=== PATIENT | male | born 1975 | race Caucasian/White ===

== ENCOUNTER 2017-07-01 21:53 | Emergency (ER) | payer BC, OTHER ==
[2017-07-01 22:29] VITALS: O2SAT 98
--- NOTE | 2017-07-01 23:09 | C.PDOC ---
History Of Present Illness 41 year old male, with a past medical history of HTN and depression, who presents to the emergency department for evaluation of rash developed to right lower extremity for the past x3-4 days. Patient reports rash is associated with burning sensation to the right foot. He states earlier today noted similar rash to the left lower leg. He denies fever, chills, headache, dizziness, vertigo, visual changes, focal deficits, neck pain, chest pain, SOB, dyspnea, palpitation , nausea, vomit, diarrhea, abdominal pain, back pain, UTI sx, denies trauma or injut, recent travel , denies change in medication. Ambulate to Ed for evaluation, not in nay apparent distress. PMD: None provided. Time Seen by Provider: 07/01/17 22:32 Chief Complaint (Nursing): Abnormal Skin Integrity History Per: Patient History/Exam Limitations: no limitations Onset/Duration Of Symptoms: Days (x3-4) Current Symptoms Are (Timing): Still Present Location Of Injury: Right: Leg, Left: Leg Past Medical History Reviewed: Historical Data, Nursing Documentation, Vital Signs Vital Signs: Last Vital Signs Temp 98 F 07/02/17 02:38 Pulse 82 07/02/17 02:38 Resp 20 07/02/17 02:38 BP 120/80 07/02/17 02:38 Pulse Ox 98 07/02/17 02:38 - Medical History PMH: Asthma, Depression, HTN Surgical History: No Surg Hx - [facility] Procedures TETANUS TOXOID ADMINIST (12/17/13) Family History: States: Unknown Family Hx - Social History Hx Tobacco Use: Yes Hx Alcohol Use: No Hx Substance Use: Yes - Immunization History Hx Tetanus Toxoid Vaccination: No Hx Influenza Vaccination: No Hx Pneumococcal Vaccination: No Review Of Systems Except As Marked, All Systems Reviewed And Found Negative. Constitutional: Negative for: Fever, Chills ENT: Negative for: Nose Congestion Cardiovascular: Negative for: Chest Pain Respiratory: Negative for: Cough, Shortness of Breath Gastrointestinal: Negative for: Nausea, Vomiting, Abdominal Pain, Diarrhea Skin: Positive for: Rash (b/l lower extremities) Neurological: Negative for: Headache, Dizziness Physical Exam - Physical Exam Appears: Well, Non-toxic, No Acute Distress Skin: Normal Color, Warm, Dry, Rash (petechiae to b/l shins area) Head: Normacephalic Eye(s): bilateral: PERRL, EOMI Ear(s): Bilateral: Normal Nose: No Flaring, No Discharge Oral Mucosa: Moist, No Drooling Tongue: Normal Appearing, No Lesions, No Bleeding Lips: No Lesions Gingiva: No Swelling, No Tender, No Bleeding Throat: No Erythema, No Drooling Neck: Normal ROM, Trachea Midline, Supple Cardiovascular: Rhythm Regular, No Murmur, No JVD Respiratory: No Decreased Breath Sounds, No Accessory Muscle Use, No Stridor, No Wheezing Gastrointestinal/Abdominal: Soft, No Tenderness, No Distention, No Guarding Back: No CVA Tenderness, No Vertebral Tenderness Extremity: Normal ROM (upper and lower extremities), No Tenderness, No Pedal Edema, No Calf Tenderness, No Deformity, No Swelling Neurological/Psych: Oriented x3, Normal Speech, Normal Motor, Normal Sensation, Normal Reflexes Gait: Steady ED Course And Treatment - Laboratory Results Result Diagrams: 07/02/17 00:27 07/01/17 23:35 Lab Interpretation: No Acute Changes O2 Sat by Pulse Oximetry: 98 (RA) Pulse Ox Interpretation: Normal Progress Note: Initial Plan: CMP, CPK, Drug screen, urine, CBC w/ differential, Sed Rate, PTT, PT, urinalysis. Pt was OBS in ED for 4 hours and remained stable. On re-evaluation, pt is afebrile, hemodynamicaly stable. Non-toxic. Tolerate po well in ED. PulsEOx 98% RA. ENT: no acute findings. Neck: Supple , (-) meningeal sign, (-) JVD, (-) carotid bruits B/L. Lungs: CTA B/L, BS equal B/L. CVS: (+)S1S2, reg. Abd: benign, (-) guaridng, (-) rebound. Back: ( -) CVA tenderness. Neurologicaly intact. case discussed with and patient was evaluated, blood work review and results discussed with patient. Pt has clinical findings c/w vasculitis, mild dehydration. As per , pt i sstable for discharge now with outpt f/u. Pt advised, and ref. to F/u with PMD in 1-2 days for re-eval. return to ED immediately if any worsening or new changes. Pt understand and agrees with discharges. On discharge, pt requested Rx: Lisinopril, ran out. Disposition Counseled Patient/Family Regarding: Studies Performed, Diagnosis, Need For Followup, Rx Given - Disposition Referrals: [facility] [Outside] Disposition: HOME/ ROUTINE Disposition Time: 02:00 Condition: STABLE Additional Instructions: Follow up with PMD in 1-2 days for re-evaluation. Consider review medication as possible cause of vasculaitis Encourage fluids return to ED if any worsening or new changes. Prescriptions: Lisinopril [Prinivil] 10 mg PO DAILY #20 tab Instructions: High Blood Pressure in Adults, Vasculitis (DC) Forms: [employer] (Sudanese) - Clinical Impression Clinical Impression: Vasculitis - Scribe Statement The provider has reviewed the documentation as recorded by the Scribe Guy Vora
[2017-07-01 23:42] LABS: URINE BACTERIA RARE (<OCC); URINE BILIRUBIN NEGATIVE (NEGATIVE); URINE CLARITY Clear (Clear); URINE COLOR Yellow (YELLOW); URINE GLUCOSE (UA) NORMAL (Normal); URINE LEUKOCYTE ESTERASE NEG Leu/uL (Negative); URINE PROTEIN NEGATIVE (NEGATIVE); URINE UROBILINOGEN NORMAL mg/dL (0.2-1.0)
[2017-07-01 23:43] LABS: URINE BLOOD NEGATIVE (NEGATIVE)
[2017-07-01 23:50] LABS: GFR AFRICAN-AMERICAN > 60; GFR NON-AFRICAN AMERICAN > 60
[2017-07-01 23:54] LABS: ALB/GLOB RATIO 0.9 (1.0-2.1); ALBUMIN 4.2 g/dL (3.5-5.0); ALT/SGPT 57 U/L (21-72); AST/SGOT 58 U/L (17-59); BLOOD UREA NITROGEN 21 mg/dL (9-20)
[2017-07-01 23:58] LABS: BARBITURATES, UR NEGATIVE (NEGATIVE); BENZODIAZEPINES, UR NEGATIVE (NEGATIVE); OPIATES, UR NEGATIVE (NEGATIVE); PHENCYCLIDINE, UR NEGATIVE (NEGATIVE)
[2017-07-02 00:31] LABS: BASO % 0.3 % (0.0-2.0); EOS # 0.2 K/uL (0.0-0.7); EOS % 2.6 % (0.0-4.0); HEMOGLOBIN 15.3 g/dL (12.0-18.0); LYMPH # 2.8 K/uL (1.0-4.3); MEAN CELL VOLUME 88.5 fL (80.0-94.0); MEAN PLATELET VOLUME 8.6 fL (7.2-11.7); MONO % 12.5 % (0.0-10.0); NEUT % 49.6 % (50.0-75.0); NRBC % 0.1 % (0.0-2.0); RBC 4.94 Mil/uL (4.40-5.90); RED CELL DISTRIBUTION WIDTH 13.4 % (11.5-14.5)
[2017-07-02 00:39] LABS: INR 1.1; PROTHROMBIN TIME 12.5 SECONDS (9.7-12.2)
[2017-07-02] MEDS ORDERED: Sodium Chloride 0.9% 1,000 ML IV ONE (00:47)
[2017-07-02 02:39] VITALS: BP 120/80; PULSE 82; RESP 20; TEMP 98
== END 2017-07-02 02:40 | disposition home or self-care (01) ==
LOC: C.ER 21:53
DX: I77.6 Arteritis, unspecified (principal); I10 Essential (primary) hypertension; Z72.0 Tobacco use
CPT/HCPCS: 80053; 80324; 80345; 80346; 80349; 80353; 80358; 80361; 81001; 82550; 83992; 85025; 85610; 85730; 96360; 99283; J7040

== ENCOUNTER 2017-08-27 11:43 | Emergency (ER) | payer OTHER ==
[2017-08-27 12:00] VITALS: BP 143/90; PULSE 94; RESP 18; TEMP 98.7; O2SAT 96
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
[2017-08-27] MEDS ORDERED: Tetanus/Diphtheria Toxoids 0.5 ml Syringe IM ONE ×2 (12:13→12:25)
[2017-08-27] MEDS ORDERED: Oxycodone/Acetaminophen 5/325 mg Tab PO STA (12:13)
[2017-08-27] MEDS ORDERED: Oxycodone/Acetaminophen 5/325 mg Tab ONE (12:24)
[2017-08-27] MEDS ORDERED: Tmp-Smz 800 mg-160 mg DS Tab PO STA (12:34)
[2017-08-27] MEDS ORDERED: Amoxicillin-Clav 875-125 mg Tab PO STA (12:34)
[2017-08-27] MEDS ORDERED: Tmp-Smz 800 mg-160 mg DS Tab ONE (12:37)
[2017-08-27] MEDS ORDERED: Amoxicillin-Clav 875-125 mg Tab PO ONE (12:38)
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
== END 2017-08-27 12:55 | disposition home or self-care (01) ==
LOC: C.ER 11:43
DX: S40.812A Abrasion of left upper arm, initial encounter (principal); S80.212A Abrasion, left knee, initial encounter; S80.211A Abrasion, right knee, initial encounter; T14.8XXA Other injury of unspecified body region, initial encounter; V29.9XXA Motorcycle rider (driver) (passenger) injured in unspecified traffic accident, initial encounter; I10 Essential (primary) hypertension; L03.113 Cellulitis of right upper limb; Z72.0 Tobacco use; Z23 Encounter for immunization

== ENCOUNTER 2018-06-26 21:42 | Emergency (ER) | payer OTHER ==
[2018-06-26] MEDS ORDERED: Iodixanol 320 MG/ML 100 ML BOTTLE IV ONE (22:55)
[2018-06-26 23:33] LABS: BASO % 0.3 % (0.0-2.0); EOS # 0.2 K/uL (0.0-0.7); EOS % 1.8 % (0.0-4.0); HEMOGLOBIN 14.5 g/dL (12.0-18.0); LYMPH % 31.1 % (20.0-40.0); MEAN CELL VOLUME 89.8 fL (80.0-94.0); MEAN CORPUSCULAR HGB CONC 34.5 g/dL (33.0-37.0); MEAN PLATELET VOLUME 8.7 fL (7.2-11.7); MONO # 0.8 K/uL (0.0-0.8); MONO % 8.2 % (0.0-10.0); NEUT # 5.7 K/uL (1.8-7.0); NEUT % 58.6 % (50.0-75.0); NRBC % 0.1 % (0.0-2.0); RBC 4.69 Mil/uL (4.40-5.90); RED CELL DISTRIBUTION WIDTH 13.5 % (11.5-14.5); WHITE BLOOD COUNT 9.7 K/uL (4.8-10.8)
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
[2018-06-26 23:47] LABS: ALB/GLOB RATIO 1.1 (1.0-2.1); ALBUMIN 4.2 g/dL (3.5-5.0); ALT/SGPT 44 U/L (21-72); AST/SGOT 32 U/L (17-59); BLOOD UREA NITROGEN 18 mg/dL (9-20); CALCIUM 9.7 mg/dl (8.6-10.4); GFR NON-AFRICAN AMERICAN > 60
[2018-06-27 00:30] VITALS: BP 114/72; PULSE 80; TEMP 97.2; O2SAT 95
[2018-06-27 00:53] VITALS: RESP 18
== END 2018-06-27 00:30 | disposition left against medical advice (07) ==
LOC: C.ER 21:42
DX: R07.9 Chest pain, unspecified (principal); M54.10 Radiculopathy, site unspecified; I10 Essential (primary) hypertension; Z72.0 Tobacco use